=== PATIENT | male | born 1990 ===

== ENCOUNTER 2018-01-23 17:26 | Emergency (ER) | payer SELFPAY ==
[2018-01-23 17:40] VITALS: BMI 28.3
[2018-01-23 17:41] VITALS: O2SAT 99
--- NOTE | 2018-01-23 17:42 | ED PDOC ---
Arrival/HPI - General Time Seen by Provider: 01/23/18 17:35 Historian: Patient - History of Present Illness Narrative History of Present Illness (Text): 01/23/18 17:38 This 27 yo male, who denies pmh, presents to this ED c/o intermittent left sided chest pain x 3 days. Patient stated pain is described as "stabbing", which last for about 30 minutes, around 5-6 times a day. Patient denies similar symptoms in the past. Patient denies SOB, skin rash, abdominal pain, illegal drug use, alcohol abuse, recent trauma, urinary symptoms, heavy lifting , cough, hemoptysis, recent surgical procedure, leg swelling, calf pain, tobacco use, dizziness, recent travel, blood disorder, or abnormal gait. PERC is negative for PE Time/Duration: Other (3 days) Symptom Onset: Sudden Symptom Course: Intermittent Quality: Stabbing Context: Home Past Medical History - Provider Review Nursing Documentation Reviewed: Yes Family/Social History - Physician Review Nursing Documentation Reviewed: Yes Family/Social History: Other (noncontributory) Allergies/Home Meds Allergies/Adverse Reactions: Allergies No Known Allergies Allergy (Verified 01/23/18 17:39) Review of Systems - Review of Systems Constitutional: Normal. absent: Fatigue, Weight Change, Fevers, Night Sweats Eyes: Normal ENT: Normal Respiratory: Normal. absent: SOB, Cough Cardiovascular: Chest Pain. absent: Palpitations, Edema, Calf Pain, BOYKIN, Orthopnea, Syncope Gastrointestinal: Normal Genitourinary Male: Normal Musculoskeletal: Normal Skin: Normal Neurological: Normal Endocrine: Normal Hemo/Lymphatic: Normal Psychiatric: Normal Physical Exam Vital Signs Temp Pulse Resp BP Pulse Ox 01/23/18 17:37 98.8 F 66 18 143/68 99 Temperature: Afebrile Blood Pressure: Normal Pulse: Regular Respiratory Rate: Normal Appearance: Positive for: Well-Appearing, Non-Toxic, Comfortable Pain Distress: None Mental Status: Positive for: Alert and Oriented X 3 - Systems Exam Head: Present: Atraumatic, Normocephalic Pupils: Present: PERRL Extroacular Muscles: Present: EOMI Conjunctiva: Present: Normal Mouth: Present: Moist Mucous Membranes Neck: Present: Normal Range of Motion Respiratory/Chest: Present: Clear to Auscultation, Good Air Exchange. No: Respiratory Distress, Accessory Muscle Use, Wheezes, Decreased Breath Sounds, Rales, Retracting, Rhonchi, Tender to Palpation Cardiovascular: Present: Regular Rate and Rhythm, Normal S1, S2. No: Murmurs Abdomen: No: Tenderness, Distention, Peritoneal Signs Back: Present: Normal Inspection. No: CVA Tenderness Upper Extremity: Present: Normal Inspection, Normal ROM. No: Cyanosis, Edema Lower Extremity: Present: Normal Inspection, Normal ROM. No: Edema Neurological: Present: GCS=15, CN II-XII Intact, Speech Normal, Motor Func Grossly Intact, Normal Sensory Function, Normal Cerebellar Funct, Gait Normal, Memory Normal Skin: Present: Warm, Dry, Normal Color. No: Rashes Psychiatric: Present: Alert, Oriented x 3, Normal Insight, Normal Concentration Medical Decision Making ED Course and Treatment: 01/23/18 18:21 Re-evaluation. Patient feels better. Discussed results and plan with patient who expresses understanding. All questions answered and there is agreement with the plan to discharge home with instructions. Patient stable for discharge. Return if symptoms persist or worsen. Patient was recommended to f/u reverser and clinic doctor in 1-2 days. To return to ED if symptoms worsen. Re-evaluation Time: 18:23 Reassessment Condition: Re-examined, Improved - RAD Interpretation Narrative RAD Interpretations (Text): 01/23/18 18:15 HISTORY: left sided CP COMPARISON: No prior. FINDINGS: LUNGS: The lungs are clear. PLEURA: No significant pleural effusion identified, no pneumothorax apparent. CARDIOVASCULAR: Normal. OSSEOUS STRUCTURES: No significant abnormalities. VISUALIZED UPPER ABDOMEN: Normal. OTHER FINDINGS: None. IMPRESSION: No active pulmonary disease. Radiology Orders: 01/23/18 17:37 CHEST PORTABLE [RAD] Stat - EKG Interpretation Interpreted by ED Physician: Yes (NSR @ 75 bpm. Normal interval. No ST changes ) Type: 12 lead EKG Comparison: No previous EKG avail. Disposition/Present on Arrival - Present on Arrival Any Indicators Present on Arrival: No History of DVT/PE: No History of Uncontrolled Diabetes: No Urinary Catheter: No History of Decub. Ulcer: No - Disposition Have Diagnosis and Disposition been Completed?: Yes Diagnosis: Non-cardiac chest pain Disposition: HOME/ ROUTINE Disposition Time: 18:24 Patient Plan: Discharge Condition: IMPROVED Discharge Instructions (ExitCare): Chest Pain That Is Not Caused by the Heart ( [place]) Print Language: TOGOLESE Additional Instructions: llame al cardiologo para que le examine de nuevo en 1-2 goldberg. Cardilologo puede ordenar mas examenes para chequear olvera amaris. Tambien llame al doctor de la clinica. Regrese a la emergencia si dolor empeora. Prescriptions: Famotidine [Pepcid] 40 mg PO DAILY #10 tablet Ibuprofen [Motrin] 600 mg PO Q8 PRN #20 tab PRN Reason: Pain, Severe (8-10) Referrals: [facility] [Outside] - Follow up with primary [facility], [place] [Outside] - Follow up with primary Dharmesh Castle MD [Staff Provider] - Follow up with primary Forms: WORK NOTE
--- NOTE | 2018-01-23 17:58 | RAD ---
HISTORY: left sided CP COMPARISON: No prior. FINDINGS: LUNGS: The lungs are clear. PLEURA: No significant pleural effusion identified, no pneumothorax apparent. CARDIOVASCULAR: Normal. OSSEOUS STRUCTURES: No significant abnormalities. VISUALIZED UPPER ABDOMEN: Normal. OTHER FINDINGS: None. IMPRESSION: No active pulmonary disease.
[2018-01-23 19:40] VITALS: BP 148/74; PULSE 68; RESP 16; TEMP 97.8
--- NOTE | 2018-01-24 22:27 | CARD ---
APPROVED REPORT EKG Measurement Heart [id number] <Conclusion> Normal sinus rhythm Normal ECG
== END 2018-01-23 19:00 | disposition home or self-care (01) ==
LOC: ED 17:26
DX: R07.89 Other chest pain (principal)
CPT/HCPCS: 71045; 93005; 96372; 99282; J1885